=== PATIENT | male | born 1995 | race Caucasian/White ===

== ENCOUNTER 2020-02-27 19:52 | Emergency (ER) | payer OTHER ==
[~2020-02-27] VITALS: Ht 172.7 cm; Wt 88.5 kg
[2020-02-27] MEDS ORDERED: TRUVADA1 EAC1 PO (20:03)
[2020-02-27] MEDS ORDERED: RITALIN LA40 MG PO (20:03)
[2020-02-27] MEDS ORDERED: AUGMENTIN 875-1 EACH PO (21:28)
[2020-02-27 21:41] VITALS: BP 136/87
== END 2020-02-27 21:42 | disposition home or self-care (01) ==
LOC: ER 19:52
DX: S61.256A Open bite of right little finger without damage to nail, initial encounter (principal); S61.431A Puncture wound without foreign body of right hand, initial encounter; Z79.899 Other long term (current) drug therapy; Z88.6 Allergy status to analgesic agent; W54.0XXA Bitten by dog, initial encounter; Y93.89 Activity, other specified; Y92.89 Other specified places as the place of occurrence of the external cause; Y99.8 Other external cause status